=== PATIENT | female | born 1965 | race Caucasian/White ===

== ENCOUNTER → 2019-01-22 | Outpatient (CLI) | payer BC ==
[~2019-01-22] MED LIST: ALPR.25 PO; Acetaminophen325 M1 PO; DICL75ER PO; DULO60; FOLI1 PO; HUMALOG; Humalog100 UNIT/1; Humalog100 UNIT/1 SQ; LEVSOD137 PO; LEVSOD150 PO; METTREX2.5 PO; OXYACE5T PO; RED YEAST RICE600 MG PO; SULF500A PO; [UNRECOGNIZED DRUG - OTHER] PO
[2019-01-28 13:09] LABS: Stool Occult Bld Immuno 1 Negative (NEGATIVE); Stool Occult Bld Immuno 2 Negative (NEGATIVE)
== END | disposition home or self-care (01) ==
LOC: LAB 17:04 → LAB SHORT 17:04
PROVIDERS: Internal Medicine
DX: Z12.11 Encounter for screening for malignant neoplasm of colon (principal); E03.9 Hypothyroidism, unspecified; E78.5 Hyperlipidemia, unspecified; E55.9 Vitamin D deficiency, unspecified; E10.9 Type 1 diabetes mellitus without complications; Z79.899 Other long term (current) drug therapy
CPT/HCPCS: 82274